=== PATIENT | male | born 1995 | race Caucasian/White ===

== ENCOUNTER 2018-03-29 12:19 | Emergency (ER) | payer OTHER ==
[~2018-03-29] VITALS: Ht 175.3 cm; Wt 117.9 kg
[2018-03-29 12:30] VITALS: BP 136/91
[2018-03-29] MEDS ORDERED: IBUPROFEN 800 MG TAB PO ONE (13:45)
== END 2018-03-29 14:11 | disposition left against medical advice (07) ==
LOC: ER 12:19
DX: H66.91 Otitis media, unspecified, right ear (principal); F17.210 Nicotine dependence, cigarettes, uncomplicated